=== PATIENT | female | born 1925 | race Caucasian/White ===

== ENCOUNTER 2016-05-15 17:55 | Emergency (ER) | payer MEDICARE, OTHER ==
[~2016-05-15 17:55] MED LIST: AMIODARONE HCL100 MG PO; ANTIVERT12.5 MG PO; ATIVAN0.5 MG PO; CALCIUM600 MG PO; CERTAGEN1 EACH PO; DEXILANT60 MG PO; DUONEB 2.5-0.5M1 AMP INH; DURAGESIC 25MC25 MCG TD; GLUCOTROL5 MG PO; ISOSORBIDE MONO60 MG PO; LASIX20 MG PO; MICRO-K10 MEQ PO; MIRALAX17 GM PO; MUCINEX DM ER1 EACH PO; NORVASC5 MG PO; OMEPRAZOLE20 MG PO; PRAVACHOL40 MG PO; PROZAC10 MG PO; SYNTHROID75 MCG PO; TRAMADOL HCL50 MG PO
[2016-05-15 18:34] LABS: BILIRUBIN NEGATIVE (NEGATIVE); BLOOD 1+ Ery/uL (NEGATIVE); CLARITY CLEAR (CLEAR); COLOR YELLOW (YELLOW); GLUCOSE (U) TRACE mg/dL (NORMAL); KETONE (U) NEGATIVE (NEGATIVE); LEUKOCYTES NEGATIVE Leu/uL (NEGATIVE); NITRITE NEGATIVE (NEGATIVE); PROTEIN NEGATIVE (NEGATIVE)
[2016-05-15 18:38] LABS: BACTERIA TRACE
[2016-05-15 19:02] LABS: BASOPHIL 0.3 % (0-2); CREATININE 0.8 mg/dL (0.5-1.0); EOSINOPHIL 1.8 % (0-7); HCT 32.1 % (37.0-47.0); HGB 9.6 g/dl (12.5-16.0); LYMPHOCYTE 31.5 % (15-48); MCH 22.5 pg (25.0-31.0); MCHC 29.9 g/dL (32.0-36.0); MCV 75.4 fL (78.0-100.0); MONOCYTE 9.1 % (0-12); MPV 9.5 fL (6.0-9.5); NEUTROPHIL 57.3 % (41-80); PLT 277 K/uL (150-400); RBC 4.26 M/uL (4.20-5.40); RDW 16.8 % (11.5-14.0); WBC 7.2 K/uL (4.0-10.5)
[2016-05-15 19:31] LABS: LACTIC ACID 1.6 mmol/L (0.5-2.2)
== END 2016-05-15 22:45 | disposition home or self-care (01) ==
LOC: FER 17:55
PROVIDERS: Internal Medicine
DX: R07.9 Chest pain, unspecified (principal); R10.32 Left lower quadrant pain; I11.0 Hypertensive heart disease with heart failure; I50.9 Heart failure, unspecified; J44.9 Chronic obstructive pulmonary disease, unspecified; K21.9 Gastro-esophageal reflux disease without esophagitis; R82.90 Unspecified abnormal findings in urine; Z79.899 Other long term (current) drug therapy; Z79.51 Long term (current) use of inhaled steroids; Z87.19 Personal history of other diseases of the digestive system; Z95.0 Presence of cardiac pacemaker
CPT/HCPCS: 36415; 71010; 80048; 81001; 83605; 83880; 84484; 85025; 87040; 87088; 93005; 94640; 94760